=== PATIENT | male | born 1960 | race Caucasian/White ===

== ENCOUNTER 2016-09-20 06:18 | Outpatient (CLI) | payer OTHER ==
[2016-09-20] MEDS ORDERED: IOPAMIDOL-300 100 ML VIAL IVP ONE (08:12)
[2016-09-20] MEDS ORDERED: IOPAMIDOL-300 50 ML VIAL PO ONE (08:12)
== END 2016-09-20 06:19 | disposition home or self-care (01) ==
DX: K40.90 Unilateral inguinal hernia, without obstruction or gangrene, not specified as recurrent (principal); Z85.47 Personal history of malignant neoplasm of testis; R59.0 Localized enlarged lymph nodes
CPT/HCPCS: 74177; Q9967